=== PATIENT | male | born 1985 ===

== ENCOUNTER 2020-10-14 12:07 | Emergency (ER) | payer SELFPAY ==
[2020-10-14 12:16] VITALS: BP 141/97
--- NOTE | 2020-10-14 12:54 | XRay Report ---
LEFT HAND 3 VIEWS INDICATION: left thumb laceration after saw. COMPARISON: No relevant prior imaging study available. FINDINGS: There is laceration injury to the left thumb. There is a large defect within the distal portion of th e thumb proximal phalanx. There is also a transverse intra-articular fracture at the base of the dist al phalanx of the left. No definite foreign bodies. IMPRESSION: 1. Laceration injury/penetrating trauma with fractures through the thumb phalanges along both sides o f the IP joint. Expected fracture fragment arising from the distal portion of the proximal phalanx i s not visualized, this could be flipped and superimposed over the distal phalanx or could be outside the patient if there was significant laceration. Signer Name: Rigo Rodriguez MD Signed: 10/14/2020 12:50 PM Workstation Name: [id number]
[2020-10-14] MEDS ORDERED: TETANUS,DIPH,PERTUSS(ACELL) VACCINE 0.5 ML SYRINGE IM ONE (12:58)
[2020-10-14] MEDS ORDERED: SODIUM CHLORIDE 0.9% IRR 500 ML BOTTLE IR ONE (13:00)
[2020-10-14] MEDS ORDERED: LIDOCAINE (1%) 10 MG/1 ML VIAL 20 ML MDV INFILTRATI ONE (13:00)
[2020-10-14] MEDS ORDERED: BUPIVACAINE/PF (0.5%) 5 MG/1 ML 10 ML VIAL INFILTRATI ONE (13:00)
--- NOTE | 2020-10-14 13:27 | Emergency Department Report ---
- General Chief Complaint: Laceration/Recheck/Suture Stated Complaint: LT THUMB INJURY/FRACTURE Time Seen by Provider: 10/14/20 12:18 Source: patient Mode of arrival: Ambulatory Limitations: No Limitations - History of Present Illness Initial Comments: Patient is a 35-year-old male who presents emergency room complaints of a laceration to the left thumb that occurred a couple hours prior to arrival. Patient states that he was using a skill saw. He states that he went to an urgent care and states that they numbed the thumb and started placing sutures were then they were concerned for an open fracture and cut the sutures out. He denies any numbness or weakness prior to them using the local anesthetic. No past medical history. No allergies to medications. He is unsure of his last tetanus immunization. pt is right hand dominant. - Related Data Previous Rx's Medication Instructions Recorded Last Taken Type HYDROcodone/APAP 5-325 [[place] 1 each PO Q6HR PRN #12 tablet 10/14/20 Unknown Rx 5/325] Ibuprofen [Motrin 600 MG tab] 600 mg PO Q8H PRN #14 tablet 10/14/20 Unknown Rx cephALEXin [Keflex] 500 mg PO QID 7 Days #28 capsule 10/14/20 Unknown Rx Allergies Allergy/AdvReac Type Severity Reaction Status Date / Time No Known Allergies Allergy Unverified 10/14/20 14:06 ED Review of Systems ROS: Stated complaint: LT THUMB INJURY/FRACTURE Other details as noted in HPI Comment: All other systems reviewed and negative ED Past Medical Hx - Past Medical History Additional medical history: tachycardia, vertigo - Surgical History Past Surgical History?: No - Medications Home Medications: Home Medications Medication Instructions Recorded Confirmed Last Taken Type HYDROcodone/APAP 5-325 [[place] 1 each PO Q6HR PRN #12 tablet 10/14/20 Unknown Rx 5/325] Ibuprofen [Motrin 600 MG tab] 600 mg PO Q8H PRN #14 tablet 10/14/20 Unknown Rx cephALEXin [Keflex] 500 mg PO QID 7 Days #28 capsule 10/14/20 Unknown Rx ED Physical Exam - General Limitations: No Limitations General appearance: alert, in no apparent distress - Head Head exam: Present: atraumatic, normocephalic - Eye Eye exam: Present: normal appearance - ENT ENT exam: Present: mucous membranes moist - Respiratory Respiratory exam: Absent: respiratory distress, accessory muscle use - Extremities Exam Extremities exam: Present: other (3 cm laceration present to the left dorsal and lateral thumb, there is a skin avulsion present, no foreign body visualized, no obvious bony fragments, FROM of the left wrist, hand, and digits, neurovascularly intact) - Neurological Exam Neurological exam: Present: alert, oriented X3 - Psychiatric Psychiatric exam: Present: normal affect, normal mood - Skin Skin exam: Present: warm, dry ED Course Vital Signs 10/14/20 12:14 Temperature 98.9 F Pulse Rate 82 Respiratory 20 Rate Blood Pressure 141/97 [Right] O2 Sat by Pulse 97 Oximetry - Consultations Consultation #1: 10/14/20 15:[address] Zuluaga, orthopedic surgeon at [facility], discussed case including exam findings and x-ray findings, advised to send email to see [email or web address] with patient's name, date of , contact number, and they will call patient to set up outpatient appointment, no further recommendations sent email [employer] secure email - Laceration /Wound Repair Left Dorsal Finger Wound Location: upper extremity (left dorsal thumb) Wound Length (cm): 3 Wound's Depth, Shape: irregular Wound Explored: no foreign body removed Irrigated w/ Saline (ccs): 500 Betadine Prep?: Yes Volume Anesthetic (ccs): 10 (50:50 mixture of 1% lidocaine without epi and 0.5% bupvicaine) Wound Debrided: extensive Wound Repaired With: sutures Suture Size/Type: 4:0, proline Number of Sutures: 7 Layer Closure?: No Number Deep Layer Sutures: 0 Sterile Dressing Applied?: Yes Progress: Wound irrigated with saline and thoroughly scrubbed with Betadine, used a syringe to irrigate with 500 cc of saline, extensively cleaned wound, digital block performed with 10 cc of a 50-50 mixture of 1% lidocaine without epinephrine and 0.5% bupivacaine, aspirated to make sure not in the vessel, good anesthesia achieved, Betadine prep, sterile gloves worn, sterile drapes applied, 4-0 Prolene used for skin closure, 7 sutures placed, patient tolerated well, no complications, bleeding controlled, sterile dressing applied, splint applied and patient remained neurovascularly intact ED Medical Decision Making - Radiology Data Radiology results: report reviewed Ordering Physician: MAIDA MCKENNA Date of Service: 10/14/20 Procedure(s): XR hand 3+V LT Accession Number(s): [id number] cc: MAIDA MCKENNA Fluoro Time In Minutes: LEFT HAND 3 VIEWS INDICATION: left thumb laceration after saw. COMPARISON: No relevant prior imaging study available. FINDINGS: There is laceration injury to the left thumb. There is a large defect within the distal portion of the thumb proximal phalanx. There is also a transverse intra-articular fracture at the base of the distal phalanx of the left. No definite foreign bodies. IMPRESSION: 1. Laceration injury/penetrating trauma with fractures through the thumb phalanges along both sides of the IP joint. Expected fracture fragment arising from the distal portion of the proximal phalanx is not visualized, this could be flipped and superimposed over the distal phalanx or could be outside the patient if there was significant laceration. Signer Name: Rigo Rodriguez MD Signed: 10/14/2020 12:50 PM Workstation Name: [id number] Transcribed By: SW Dictated By: Rigo Rodriguez MD Electronically Authenticated By: Rigo Rodriguez MD Signed Date/Time: 10/14/20 1250 DD/ 1245 TD/TT: - Medical Decision Making Patient is a 35-year-old male who presents emergency room complaints of a laceration to the left thumb that occurred a couple hours prior to arrival. Patient states that he was using a skill saw. He states that he went to an urgent care and states that they numbed the thumb and started placing sutures were then they were concerned for an open fracture and cut the sutures out. He denies any numbness or weakness prior to them using the local anesthetic. No past medical history. No allergies to medications. He is unsure of his last tetanus immunization. pt is right hand dominant. VSS. on exam: 3 cm laceration present to the left dorsal and lateral thumb, there is a skin avulsion present, no foreign body visualized, no obvious bony fragments, FROM of the left wrist, hand, and digits, neurovascularly intact. XR left hand: 1. Laceration injury/penetrating trauma with fractures through the thumb phalanges along both sidesof the IP joint. Expected fracture fragment arising from the distal portion of the proximal phalanx is not visualized, this could be flipped and superimposed over the distal phalanx or could be outside the patient if there was significant laceration. Results appear consistent with open fracture. Wound significantly irrigated with saline and thoroughly scrubbed with Betadine and repaired per procedure note. Patient given Tdap and cefazolin IV. Spoke with Dr. Zuluaga, orthopedic surgeon at [facility], discussed case including exam findings and x-ray findings, advised to send email to see [email or web address] with patient's name, date of , contact number, and they will call patient to set up outpatient appointment, no further recommendations, sent email [employer] secure email. Discussed case with Dr. Roche, ER attending who evaluated patient at bedside and agrees with plan. Patient placed in splint by myself and remained neurovascularly intact. Given prescription for Keflex, ibuprofen, [place]. Advised patient Please use medication as prescribed. Please follow-up with orthopedic doctor, Dr. Zuluaga. Return to emergency room for any worsening symptoms. Critical care attestation.: If time is entered above; I have spent that time in minutes in the direct care of this critically ill patient, excluding procedure time. ED Disposition Clinical Impression: Open fracture of left thumb Qualifiers: Encounter type: initial encounter Phalanx: unspecified phalanx Fracture alignment: displaced Qualified Code(s): S62.502B - Fracture of unspecified phalanx of left thumb, initial encounter for open fracture Disposition: - TO HOME OR SELFCARE Is pt being admited?: No Does the pt Need Aspirin: No Condition: Stable Instructions: Thumb Fracture Additional Instructions: Please use medication as prescribed. Please follow-up with orthopedic doctor, Dr. Zuluaga. Return to emergency room for any worsening symptoms. Prescriptions: cephALEXin [Keflex] 500 mg PO QID 7 Days #28 capsule Ibuprofen [Motrin 600 MG tab] 600 mg PO Q8H PRN #14 tablet PRN Reason: Pain, Moderate (4-6) HYDROcodone/APAP 5-325 [[place] 5/325] 1 each PO Q6HR PRN #12 tablet PRN Reason: Pain , Severe (7-10) Referrals: [facility] Laine[facility] orthopedic [Other] - 2-3 Days PRIMARY CARE,MD [Primary Care Provider] - 2-3 Days Time of Disposition: 15:52 Print Language: DANISH
== END 2020-10-14 16:30 | disposition home or self-care (01) ==
LOC: ED 12:07
DX: S62.502B Fracture of unspecified phalanx of left thumb, initial encounter for open fracture (principal); Z79.899 Other long term (current) drug therapy; X58.XXXA Exposure to other specified factors, initial encounter; Y93.89 Activity, other specified; Y92.89 Other specified places as the place of occurrence of the external cause; Y99.8 Other external cause status
CPT/HCPCS: 12002; 73130; 90471; 90715; 96365; 99283; J0690